=== PATIENT | female | born 1995 ===

== ENCOUNTER 2024-01-18 14:19 | Outpatient (AMB) | payer BC, SELFPAY ==
--- NOTE | 2024-01-18 14:41 | AM.OFFWIN_ITS ---
Intake Vital Signs 01/18/24 14:44 Height 5 ft 3 in Weight 115 lb 4 oz BMI 20.4 BP 88/58 L Blood Pressure Location Lt brachial Position Sitting Respiration 16 Pulse 58 Pulse Source Pulse Oximeter Temp 98.3 F Temp Source Oral Pulse Oximetry (%) 100 Oxygen Delivery Method Room Air Intake Visit Reasons: STREP THROAT Intake Note: Sore throat and fatigue for a couple days Patient Tobacco Use Status: Never used Tobacco Patient : No Allergies No Known Allergies Allergy (Verified 01/18/24 14:43) Medication List - Last Reconciled 01/18/24 by Mili Ritchie PA-C amoxicillin 875 mg PO Q12H Do you need a note to return to daycare/school/sports/work: No HPI STREP THROAT HPI Details Patient is a 28-year-old female who presents today with complaints possible strep throat. She denies any significant past medical history. States that she is normally really healthy and physically active. She states that her symptoms started about 2 days ago. She states that it was last night when she realized that she definitely had strep throat. She states that she had a fever, swollen lymph nodes, red throat with white spots. She has had strep throat a few times in her past and states that this felt similar. Her roommate had a sore throat last week but she does not know if she had strep or not. She states that she has not sure if she even went to the doctor but plans to talk to her today. She denies any sinus pain or pressure, ear pain, nausea, vomiting or diarrhea. No cough, wheezing or shortness a breath. She has not taken anything for her symptoms. PFSH Social History Patient Tobacco Use Status: Never used Tobacco Physical Exam Vital Signs: Last Vital Signs Temp 98.3 F 01/18/24 14:44 Pulse 58 01/18/24 14:44 Resp 16 01/18/24 14:44 BP 88/58 L 01/18/24 14:44 Pulse Ox 100 01/18/24 14:44 Oxygen Delivery Method Room Air 01/18/24 14:44 BMI result Body Mass Index 20.4 Const Orientation/consciousness: patient oriented x3 HEENT Ears: hearing grossly normal bilaterally and TM's normal bilaterally General nose exam: Normal nasal mucous membranes and turbinates present Face and sinus: Yes sinuses nontender Throat: Yes abnormal tonsil (Tonsils 2+ hypertrophy, erythematous with white exudates) and Yes posterior oropharynx abnormal (Erythematous) Neck Thyroid: Thyroid normal Lymphatic: lymphadenopathy (Cervical anterior lymphadenopathy and tonsillar lymphadenopathy noted) Resp Auscultation: clear to auscultation bilaterally Cardio Rate: regular rate Rhythm: regular rhythm Heart sounds: S1 normal heart sound present and S2 normal heart sound present GI Inspection: Yes normal to inspection Palpation (GI): Soft to palpation and Other GI palpation findings present (nontender, no cva tenderness) Auscultation: normoactive bowel sounds Skin General skin exam: no rashes or lesions noted Neuro General: patient oriented x3, gait normal and no focal motor deficits Results AMB Rapid Strep AMB Rapid Strep Positive Last Edit by Natasha Navarro CMA on 01/18/24 14:5 5 Assessment & Plan Assessment & Plan (1) Strep throat: Code(s): J02.0 - Streptococcal pharyngitis Plan: Rapid strep positive. We will start amoxicillin. Discussed risks and benefits and adverse effects of this medication. Advised her to discard her toothbrush within 72 hours to starting the medication. We discussed supportive measures including warm saltwater gargles, OTC analgesics. We did discuss that this is contagious. Follow up if no improvement or if anything worsens or changes. Patient understands and agrees with the plan. Orders: Orders AMB Rapid Strep Screen Today J02.9 - Acute pharyngitis, unspecified Medications: New amoxicillin 875 mg PO Q12H 20 tabs 0RF Coding Level of Care Code New Pt Level 3 (12266) Diagnoses Strep throat J02.0
[2024-01-18 14:44] VITALS: BP 88/58; PULSE 58; RESP 16; TEMP 36.8; O2SAT 100; BMI 20.4
== END 2024-01-18 14:59 | disposition home or self-care (01) ==
PROVIDERS: Visit Provider Physician Assistant
DX: J02.0 Streptococcal pharyngitis (principal); J02.9 Acute pharyngitis, unspecified
CPT/HCPCS: 87880; 99203